=== PATIENT | male | born 1960 | race American Indian/Alaskan Native ===

== ENCOUNTER 2016-11-27 08:59 | Day surgery (SDC) | payer OTHER ==
[2016-11-27 09:56] VITALS: BMI 45.1
[2016-11-27 10:48] LABS: PARTIAL THROMBOPLASTIN TIME 32.9 Seconds (25.6-37.1)
[2016-11-27] MEDS ORDERED: Lactated Ringer's 1,000 ML IV ONE (11:30)
[2016-11-27] MEDS ORDERED: Bupivacaine HCl 0.5% PF (10 ml) Inj ONE (11:51)
[2016-11-27] MEDS ORDERED: Lidocaine 1% Inj (20ml) ONE (11:51)
[2016-11-27] MEDS ORDERED: methylPREDNISolone Depo 80 mg/ml Inj ONE (11:51)
[2016-11-27] MEDS ORDERED: Midazolam 2 MG/2 ML VIAL ONE (11:53)
[2016-11-27] MEDS ORDERED: Bupivacaine HCl 0.5% PF (10 ml) Inj IJ ONE (11:57)
[2016-11-27] MEDS ORDERED: Lidocaine 1% Inj (20ml) IJ ONE (11:57)
[2016-11-27] MEDS ORDERED: methylPREDNISolone Depo 80 mg/ml Inj IM ONE (11:57)
[2016-11-27] MEDS ORDERED: Lactated Ringer's 1,000 ML IV SCH (12:45)
[2016-11-27 13:34] VITALS: RESP 20
[2016-11-27 14:16] VITALS: BP 132/96; PULSE 66; TEMP 98.1; O2SAT 98
--- NOTE | 2016-11-27 14:25 | OP ---
PROCEDURE DATE: 11/27/2016 PREOPERATIVE DIAGNOSIS: Lumbar facet syndrome. POSTOPERATIVE DIAGNOSIS: Lumbar facet syndrome. PROCEDURE: Left L3, L4, and L5 medial branch nerve block. SURGEON: Dr. Vickers. TYPE OF ANESTHESIA: Monitored anesthesia care. ANESTHESIA ADMINISTERED BY: Dr. Mays. COMPLICATIONS: None. SPECIMEN: None. DESCRIPTION OF PROCEDURE: After we had a discussion of the procedure with the patient including its risks, benefits, alternative, outcome data, possibility of no effect or increased pain, the patient consented to the procedure. He denied any recent infections, bleeding tendencies. Decision was then made to proceed to the OR. The patient has stopped Coumadin for more than 5 days and morning's coagulation profile was within normal limits. The patient was then transferred into the OR onto the fluoroscopy table in a prone position. The back was prepped and draped in a usual sterile fashion and sterile technique was adhered during the entire procedure. The L3, L4, and L5 medial branch nerves were located at the intersection of the superior articular process and the transverse process of the L4 and L5 pedicle and also the sacroiliac. The 3 above-targeted areas were visualized by turning the fluoroscopy towards the left at approximately 15 degrees. The skin overlying the 3 above-targeted areas were then infiltrated with 1% lidocaine using 25-gauge needle. Subsequently, a 22-gauge 5-inch spinal needle was then incrementally advanced under fluoroscopic guidance until tip of the needle made bony contact with all 3 targeted areas. After satisfactory positioning of the all 3 needles, approximately 3 mL of 0.5% Marcaine and Depo-Medrol mixture was injected. At the end of the case, the patient's back was cleaned and dried and bandage was applied. The patient was then transferred to the recovery area in good conditions without any signs of DEPUTY BUILDING GUARD toxicity or any neurological deficits. He will have a follow up in office in approximately 2 to 4 weeks. He may resume Coumadin tonight. En-Rui Vickers MD
--- NOTE | 2016-11-30 09:13 | RAD ---
PROCEDURE: Intraoperative Fluoroscopy. HISTORY: PAIN MANAGEMENT FINDINGS: Fluoroscopic assistance was provided for inferior lumbar facet joint injections. Please refer to the operative report from radiation dose of 20.24 mGy.
== END 2016-11-27 15:10 | disposition home or self-care (01) ==
LOC: H.OPSURG 08:59
PROVIDERS: ATTEND Anesthesiology
DX: M48.8X6 Other specified spondylopathies, lumbar region (principal)
CPT/HCPCS: 36415; 64493; 85610; 85730; J1040; J2250; J3010; J7120

== ENCOUNTER 2017-01-29 07:12 | Day surgery (SDC) | payer OTHER ==
[2017-01-29 07:39] VITALS: BMI 29.0
[2017-01-29] MEDS ORDERED: Lactated Ringer's 1,000 ML IV ONE ×2 (08:05→13:49)
[2017-01-29 08:40] LABS: PARTIAL THROMBOPLASTIN TIME 35.3 Seconds (25.6-37.1)
[2017-01-29] MEDS ORDERED: methylPREDNISolone Depo 80 mg/ml Inj ONE (09:38)
[2017-01-29] MEDS ORDERED: Lidocaine 1% Inj (20ml) ONE (09:39)
[2017-01-29] MEDS ORDERED: Iohexol 300 10 ML ONE ×2 (09:39→09:58)
[2017-01-29] MEDS ORDERED: Bupivacaine HCl 0.25% PF (10 ml) Inj ONE (09:39)
[2017-01-29] MEDS ORDERED: Midazolam 2 MG/2 ML VIAL ONE (09:54)
[2017-01-29] MEDS: MethylPREDNISolone Depo 40 mg/ml Inj ONE ×2 (10:15→10:18)
[2017-01-29] MEDS: Bupivacaine HCl 0.5% PF (30 ml) Inj ONE ×3 (10:15→10:21)
[2017-01-29] MEDS ORDERED: Bupivacaine HCl 0.5% PF (10 ml) Inj IJ ONE (10:18)
[2017-01-29] MEDS ORDERED: HYDROmorphone 0.5 mg/0.5 ml ISec IVP PRN (10:34)
[2017-01-29] MEDS ORDERED: Lactated Ringer's 1,000 ML IV SCH (10:45)
--- NOTE | 2017-01-29 11:47 | OP ---
PROCEDURE DATE: 01/29/2017 PREOPERATIVE DIAGNOSES: Lumbar facet syndrome and sacroiliitis. POSTOPERATIVE DIAGNOSES: Lumbar facet syndrome and sacroiliitis. PROCEDURES: Left L3, L4, and L5 medial branch nerve block and left sacroiliac joint steroid injection. ANESTHESIA ADMINISTERED BY: Israel Mackay MD SURGEON: Celso Vickers MD TYPE OF ANESTHESIA: Monitored anesthesia care. COMPLICATIONS: None. SPECIMEN: None. DESCRIPTION OF PROCEDURE: After we had discussion of the procedure with the patient including its risks, benefits, alternative, outcome data, possibility of no effect or increased pain, the patient consented to the procedure. He denied any recent infections, bleeding tendencies, or being on anticoagulants, a decision was then made to proceed to the OR. The patient was placed on a fluoroscopy table in a prone position with 2 pillows underneath his abdomen. The back was prepped and draped in the usual sterile fashion, and sterile technique was adhered to during the entire procedure. The L3, L4, and L5 medial branch nerves are located at the intersection of the superior articular process and the transverse process of the L4 and L5 pedicle along with the sacroiliac. The target was visualized by turning the fluoroscopy towards the left at approximately 15 degrees. The skin overlying the 3 above target areas was then infiltrated with 1% lidocaine using a 25-gauge needle. Subsequently, a 22-gauge 5-inch spinal needle was then incrementally advanced under fluoroscopic guidance until tip of the needle made bony contact with all 3 target areas. After satisfactory positioning of all 3 needles, approximately 2 mL of 0.5% Marcaine and Depo-Medrol mixture was injected. The needle was then removed. The sacroiliac joints were then visualized on the anterior-posterior view. The target is at the inferior pole of the posterior opening to the left sacroiliac joint. The skin overlying this area was infiltrated with 1% lidocaine using a 25-gauge needle. Subsequently, a 22-gauge 5-inch spinal needle was incrementally advanced under fluoroscopic guidance until tip of the needle walked into the joint capsule. This was confirmed by injecting approximately 0.5 mL of Isovue contrast. After appropriate placement of the needle, approximately 3 mL of 0.5% Marcaine and Depo-Medrol mixture was injected. The needle was then removed, and the patient's back was cleaned and dried, and bandages were applied. The patient was then transferred to recovery area in good conditions without any signs of CHANGE MANAGEMENT CONSULTANT toxicity or any neurovascular deficit. He will have a followup in our office in approximately 2 to 4 weeks. En-Rui Vickers MD
[2017-01-29 13:00] VITALS: RESP 18
[2017-01-29 13:44] VITALS: BP 136/83; PULSE 74; TEMP 98; O2SAT 98
--- NOTE | 2017-01-29 14:16 | RAD ---
PROCEDURE: For Skopic assistance, pain management procedure HISTORY: PAIN MANAGEMENT COMPARISON: None TECHNIQUE: Total exam DLP: (mGy): 44.74 Total fluoroscopic time (continuous mode) utilized during the procedure: 53.6 seconds. FINDINGS: Submitted images from the current procedure: 5.0 IMPRESSION: Less than 1 hr fluoroscopic time utilized during performance of the procedure.
== END 2017-01-29 15:14 | disposition home or self-care (01) ==
LOC: H.OPSURG 07:12
PROVIDERS: ATTEND Anesthesiology
DX: M46.1 Sacroiliitis, not elsewhere classified (principal); J45.909 Unspecified asthma, uncomplicated
CPT/HCPCS: 36415; 64493; 64495; 85610; 85730; J1030; J1040; J1170; J2250; J2405; J3010; J7120; Q9967